=== PATIENT | female | born 1990 | race Caucasian/White ===

== ENCOUNTER 2023-01-31 08:29 | Emergency (ER) | payer SELFPAY ==
[2023-01-31] MEDS ORDERED: Ketorolac Tromethamine 30 MG/ML VIAL ONE (09:43)
[2023-01-31] MEDS ORDERED: Tetracaine 0.5% PF 4 ML BOT ONE (09:44)
== END 2023-01-31 10:06 | disposition home or self-care (01) ==
LOC: CSHERS 08:29
DX: J06.9 Acute upper respiratory infection, unspecified (principal); H92.03 Otalgia, bilateral; R11.10 Vomiting, unspecified; F17.210 Nicotine dependence, cigarettes, uncomplicated
CPT/HCPCS: 99283; J1885